=== PATIENT | male | born 2000 | race Caucasian/White ===

== ENCOUNTER 2024-08-25 15:26 | Emergency (ER) | payer BC, SELFPAY ==
[2024-08-25 15:31] VITALS: BP 164/81; PULSE 86; TEMP 36.8; O2SAT 100; BMI 23.0
--- NOTE | 2024-08-25 15:47 | XR_ITS ---
The [address] [address] Patient Name: NOAH OBRIEN MRN: [facility]:[id number] date: 2000 Sex: M Assigned Patient Location: ER Current Patient Location: Accession/Order Number: [id number] Exam Date: 08/25/2024 15:55 Report Date: 08/25/2024 17:00 At the request of: JADE FAROOQ Procedure: XR femur RT 2V EXAM: XR femur RT 2V HISTORY: r/o foreign body right medial COMPARISON: None. TECHNIQUE: 3 views of right hip FINDINGS: There is no acute fracture or dislocation. There is a linear radiopaque foreign body, measuring 0.4 cm in the medial proximal thigh. XR/XR femur RT 2V IMPRESSION: a linear radiopaque foreign body, measuring 0.4 cm in the medial proximal thigh. Electronically authenticated by: SUGEY WILL Date: 08/25/2024 17:00
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
== END 2024-08-25 16:30 | disposition home or self-care (01) ==
PROVIDERS: Emergency Provider Emergency Medicine
DX: S70.351A Superficial foreign body, right thigh, initial encounter (principal); W45.8XXA Other foreign body or object entering through skin, initial encounter
CPT/HCPCS: 73552; 99284